=== PATIENT | female | born 1965 | race Asian ===

== ENCOUNTER 2021-09-19 12:59 | Emergency (ER) | payer BC ==
[~2021-09-19] VITALS: Ht 167.6 cm; Wt 62.4 kg
[2021-09-19 13:14] VITALS: BP 105/66
[2021-09-19] MEDS ORDERED: LIDOCAINE MPF 1% 10 MG/ML VIAL INJ ONE (13:50)
[2021-09-19] MEDS ORDERED: BACITRACIN OINT 500 UNITS/GM PKT TP ONE (13:50)
[2021-09-19] MEDS ORDERED: cephALEXin 500 MG CAP PO ONE (14:25)
[2021-09-19] MEDS ORDERED: DOXYCYCLINE 100 MG CAP PO SCH (14:25)
[2021-09-19] MEDS ORDERED: CEPH-588 PO (14:29)
[2021-09-19] MEDS ORDERED: DOXY-690 PO (14:29)
[2021-09-19] MEDS ORDERED: BACTO TP (14:29)
[2021-09-19 15:32] VITALS: BP 110/68
--- NOTE | 2021-09-19 15:36 | NUR ---
Patient discharged with v/s stable. Written and verbal after care instructions given and explained. Patient alert, oriented and verbalized understanding of instructions. Ambulatory with steady gait. All questions addressed prior to discharge. ID band removed. Patient advised to follow up with PMD. Rx of keflex and vibramycin and bactroban given. Patient educated on indication of medication including possible reaction and side effects. Opportunity to ask questions provided and answered.wash wound with soap and water prior to applying bactroban
== END 2021-09-19 15:16 | disposition home or self-care (01) ==
LOC: MED 12:59
DX: L03.116 Cellulitis of left lower limb (principal)
CPT/HCPCS: 90471; 90715; 99284; J2001